=== PATIENT | female | born 1985 | race African-American/Black ===

== ENCOUNTER 2017-02-13 09:04 | Emergency (ER) | payer SELFPAY ==
[2017-02-13 09:26] LABS: #Eosinphils 0.1 thou/uL (0.0-0.7); #Lymphocytes 2.9 thou/uL (1.20-3.40); #Monocytes 1.5 thou/uL (0.11-0.59); #Neutrophils 11.6 thou/uL (1.40-6.50); %Basophils 0.2 % (0.0-1.0); %Eosinophils 0.5 % (0.0-10.0); %Lymphocytes 17.9 % (21.0-51.0); %Monocytes 9.3 % (0.0-10.0); Mean Platelet Volume 8.5 fL (7.4-10.4); Red Blood Cell (RBC) Count 4.16 mill/uL (4.20-5.40); White Blood Cell (WBC) Count 16.1 thou/uL (4.8-10.8)
--- NOTE | 2017-02-13 09:44 | RAD ---
2 VIEWS CHEST: Date: 02/13/17 COMPARISON: None. HISTORY: Cough, congestion, and headache. FINDINGS: No pneumothorax, pleural fluid, focal consolidation, or alveolar edema. Heart and mediastinal contou rs unremarkable. IMPRESSION: No acute findings. POS: [facility]
[2017-02-13 09:54] LABS: ALT (SGPT) 14 U/L (8-55); AST (SGOT) 15 U/L (5-34); Alkaline Phosphatase 60 U/L (40-150); Anion Gap 10 mmol/L (10-20); BUN (Urea Nitrogen) 6 mg/dL (7.0-18.7); Bilirubin, Total 0.6 mg/dL (0.2-1.2); Calc. Creatinine Clearance 0 mL/min (70-130); Calcium 8.9 mg/dL (7.8-10.44); Carbon Dioxide 26 mmol/L (22-29); Chloride 104 mmol/L (98-107); Estimated GFR-MDRD Greater than 90; Protein, Total 7.6 g/dL (6.0-8.3)
[2017-02-13] MEDS ORDERED: Ciprofloxacin 500 MG TAB ONE (10:41)
[2017-02-13] MEDS ORDERED: Azithromycin 250 MG TAB ONE (10:42)
== END 2017-02-13 10:50 | disposition home or self-care (01) ==
LOC: ERS 09:04
DX: R05 Cough (principal); D72.829 Elevated white blood cell count, unspecified; I10 Essential (primary) hypertension; Z79.899 Other long term (current) drug therapy
CPT/HCPCS: 36415; 71020; 80053; 85025